=== PATIENT | male | born 1965 | race Caucasian/White ===

== ENCOUNTER 2018-01-30 23:10 | Emergency (ER) | END 2018-01-31 04:13 | disposition home or self-care (01) ==

== ENCOUNTER 2018-01-31 22:55 | Emergency (ER) | END 2018-01-31 23:56 | disposition home or self-care (01) ==

== ENCOUNTER 2018-02-05 08:58 | Emergency (ER) | END 2018-02-05 09:54 | disposition left against medical advice (07) ==